=== PATIENT | female | born 1980 | race Caucasian/White ===

== ENCOUNTER 2021-12-20 09:25 | Emergency (ER) | payer SELFPAY ==
[2021-12-20] MEDS: traMADol 50 MG Tab PO STA (09:40)
[2021-12-20] MEDS: Ketorolac 30 MG/ML SDV IM STA (09:44)
== END 2021-12-20 11:10 | disposition home or self-care (01) ==
LOC: FB.ED 09:25
DX: S60.221A Contusion of right hand, initial encounter (principal); Z88.2 Allergy status to sulfonamides; Z88.8 Allergy status to other drugs, medicaments and biological substances; W22.01XA Walked into wall, initial encounter
CPT/HCPCS: 73090; 73130; 96372; 99281; 99283; A9270; J1885